=== PATIENT | female | born 1965 | race Caucasian/White ===

== ENCOUNTER 2017-04-10 13:40 | Emergency (ER) | payer OTHER ==
[~2017-04-10] VITALS: Ht 162.6 cm; Wt 79.8 kg
[~2017-04-10 13:40] MED LIST: TEMA30CA PO; TRAM50TA2 PO
[2017-04-10] MEDS ORDERED: SODIUM CHLORIDE 0.9% 1,000ML IVBOLUS ONE (14:00)
[2017-04-10 14:24] LABS: ASPARTATE AMINO TRANSFERASE 18 U/L (15-37); BLOOD UREA NITROGEN 9 mg/dL (7-18)
[2017-04-10] MEDS ORDERED: LORazepam 2 MG/ML, 1ML IVPush ONE (14:30)
[2017-04-10] MEDS ORDERED: LORazepam 2 MG/ML, 1ML ONE (14:36)
[2017-04-10] MEDS ORDERED: ACETAMINOPHEN 325 MG TABLET PO ONE (15:30)
[2017-04-10 15:32] VITALS: BP 137/56
== END 2017-04-10 15:35 | disposition home or self-care (01) ==
LOC: ED 15:29
DX: T50.905A Adverse effect of unspecified drugs, medicaments and biological substances, initial encounter (principal); R53.1 Weakness; Y92.9 Unspecified place or not applicable
CPT/HCPCS: 36415; 80053; 82550; 85025; 85610; 93005; 96361; 96374; J2060; J7030

== ENCOUNTER → 2017-06-04 | Outpatient (CLI) | payer OTHER ==
[~2017-06-04] MED LIST changes: +ENAL5TAB PO; +FLUO10TA PO; +OXYB5TAB7 PO; +TRAZ50TA18 PO
== END | disposition home or self-care (01) ==
LOC: STAR 15:50
PROVIDERS: ATTEND Obstetrics & Gynecology Female Pelvic Medicine and Reconstructive Surgery
DX: Z02.9 Encounter for administrative examinations, unspecified (principal)

== ENCOUNTER → 2017-06-06 | Outpatient (CLI) | payer OTHER | END | disposition home or self-care (01) | LOC: CFH 14:17 | PROVIDERS: ATTEND Student in an Organized Health Care Education/Training Program | DX: Z12.31 Encounter for screening mammogram for malignant neoplasm of breast (principal) | CPT/HCPCS: 77063; G0202 ==

== ENCOUNTER 2017-06-09 10:52 | Day surgery (SDC) | payer OTHER ==
[~2017-06-09] VITALS: Ht 163.8 cm; Wt 79.0 kg
[~2017-06-09 10:52] MED LIST changes: +BUPIVACAINE/PF-EPI 0.25% 1:200K ONE; +NEOMY/POLYMYXIN B GU IRR. 1 ML IRRIG ONE
[2017-06-09] MEDS ORDERED: LACTATED RINGERS 1,000 ML IV SCH (11:27)
[2017-06-09] MEDS ORDERED: MIDAZOLAM 1 MG/ML, 2ML ONE (11:28)
[2017-06-09] MEDS ORDERED: FENTANYL PF 100 MCG/2ML ONE ×3 (11:28→14:02)
[2017-06-09 11:40] VITALS: BP 112/62
[2017-06-09] MEDS ORDERED: PROPOFOL 10 MG/ML, 20ML ONE (12:47)
[2017-06-09] MEDS ORDERED: ONDANSETRON 2MG/ML, 2ML ONE (12:47)
[2017-06-09] MEDS ORDERED: NEOSTIGMINE 1 MG/ML, 10ML ONE (12:47)
[2017-06-09] MEDS ORDERED: GLYCOPYRROLATE 0.2MG/1ML, 5ML ONE (12:47)
[2017-06-09] MEDS ORDERED: CEFAZOLIN 1,000 MG ONE (12:47)
[2017-06-09] MEDS ORDERED: DEXAMETHASONE 4 MG/ML, 1ML ONE (12:47)
[2017-06-09] MEDS ORDERED: ROCURONIUM 10 MG/ML ONE (12:47)
[2017-06-09] MEDS ORDERED: ONDANSETRON 2MG/ML, 2ML IVPush PRN (13:00)
[2017-06-09] MEDS ORDERED: LABETALOL 5MG/ML, 20ML IV PRN (13:00)
[2017-06-09] MEDS ORDERED: MEPERIDINE/PF 25MG/0.5ML IVPush PRN (13:00)
[2017-06-09] MEDS ORDERED: PROMETHAZINE 25 MG/ML, 1ML IV PRN (13:00)
[2017-06-09] MEDS ORDERED: HYDROcodone/APAP 7.5-325MG/15ML UDC PO PRN (13:00)
[2017-06-09] MEDS ORDERED: hydrALAzine 20 MG/ML, 1ML IV PRN (13:00)
[2017-06-09] MEDS ORDERED: DIPHENHYDRAMINE 50 MG/ML, 1ML IVPush ONE (14:00)
[2017-06-09] MEDS ORDERED: HYDROcodone/APAP 7.5-325MG/15ML UDC ONE (14:02)
[2017-06-09] MEDS ORDERED: DIPHENHYDRAMINE 50 MG/ML, 1ML ONE (14:02)
[2017-06-09] MEDS: FENTANYL PF 100 MCG/2ML IV PRN ×2 (14:05→14:19)
[2017-06-09] MEDS ORDERED: HYDROmorphone 1 MG/ML, 1ML ONE (14:22)
[2017-06-09] MEDS: HYDROmorphone 1 MG/ML, 1ML IV PRN ×2 (14:25→14:40)
[2017-06-09] MEDS ORDERED: KETOROLAC 30 MG/1 ML ONE (15:48)
[2017-06-09] MEDS ORDERED: KETOROLAC 30 MG/1 ML IVPush PRN (16:00)
== END 2017-06-09 17:30 ==
LOC: OUT 10:52
PROVIDERS: ATTEND Obstetrics & Gynecology Female Pelvic Medicine and Reconstructive Surgery
DX: N39.3 Stress incontinence (female) (male) (principal); I10 Essential (primary) hypertension; F17.210 Nicotine dependence, cigarettes, uncomplicated; Z72.89 Other problems related to lifestyle
CPT/HCPCS: 57265; 57282; 57288; C1781; J0690; J1100; J1170; J1200; J1885; J2250; J2405; J2704; J2710; J3010; J7120; J3490

== ENCOUNTER 2017-09-24 13:25 | Emergency (ER) | payer OTHER ==
[~2017-09-24] VITALS: Ht 162.6 cm; Wt 77.2 kg
[~2017-09-24 13:25] MED LIST changes: -BUPIVACAINE/PF-EPI 0.25% 1:200K ONE; -NEOMY/POLYMYXIN B GU IRR. 1 ML IRRIG ONE; +NITR100C6 PO
[2017-09-24 13:33] VITALS: BP 153/83
[2017-09-24] MEDS ORDERED: ONDANSETRON 2MG/ML, 2ML IVPush ONE (14:00)
[2017-09-24] MEDS ORDERED: SODIUM CHLORIDE 0.9% 1,000ML IVBOLUS ONE (14:00)
[2017-09-24] MEDS ORDERED: CEFTRIAXONE PMX 1GM/50ML 50 ML IVPB ONE (14:00)
[2017-09-24] MEDS ORDERED: SODIUM CHLORIDE FLUSH 10ML SYR IVF ONE (14:00)
[2017-09-24 14:26] LABS: BASOPHILS # (AUTO) 0.08 x10^3/uL (0-0.1); BASOPHILS % (AUTO) 1 % (0-1); EOSINOPHILS # (AUTO) 0.15 x10^3/uL (0-0.4); EOSINOPHILS % (AUTO) 2 % (1-7); LYMPHOCYTES % (AUTO) 26 % (22-44); MD NO; MEAN CORPUSCULAR HGB CONC 34.2 g/dL (32.4-35.8); MEAN CORPUSCULAR VOLUME 93.5 fL (80-100); MEAN PLATELET VOLUME 7.2 fL (7.4-10.4); MONOCYTES # (AUTO) 0.51 x10^3/uL (0.2-0.8); MONOCYTES % (AUTO) 6 % (2-9); NEUTROPHILS # (AUTO) 6.15 x10^3/uL (1.8-6.8); NEUTROPHILS % (AUTO) 66 % (42-75); PLATELET COUNT 320 x10^3/uL (130-400); RED BLOOD COUNT 4.66 x10^6/uL (3.82-5.3)
[2017-09-24] MEDS ORDERED: ONDANSETRON 2MG/ML, 2ML ONE (14:30)
[2017-09-24] MEDS ORDERED: HYDROmorphone 2 MG/ML, 1ML ONE ×2 (14:30→15:19)
[2017-09-24] MEDS ORDERED: CEFTRIAXONE PMX 1GM/50ML 50 ML ONE (14:30)
[2017-09-24 14:32] LABS: ALBUMIN 3.9 g/dL (3.4-5.0); ANION GAP 9 mmol/L (5-15); CALCIUM 8.8 mg/dL (8.5-10.1); CHLORIDE 107 mmol/L (98-107); CREATININE 0.75 mg/dL (0.55-1.02)
[2017-09-24] MEDS: HYDROmorphone 1 MG/ML, 1ML IVPush PRN ×2 (14:37→15:22)
[2017-09-24 14:41] LABS: MICROSCOPIC INDICATED
[2017-09-24] MEDS ORDERED: LEVO500T8 PO (14:41)
[2017-09-24 14:47] LABS: CULTURE INDICATED? YES
== END 2017-09-24 16:37 | disposition home or self-care (01) ==
LOC: ED 14:50
DX: N30.00 Acute cystitis without hematuria (principal); R10.30 Lower abdominal pain, unspecified; I10 Essential (primary) hypertension; Z90.710 Acquired absence of both cervix and uterus
CPT/HCPCS: 36415; 80048; 81001; 82040; 83605; 85025; 87040; 87086; 96365; 96375; 96376; 99284; J0696; J1170; J2405; J7030

== ENCOUNTER → 2018-09-04 | Outpatient (CLI) | payer OTHER ==
[~2018-09-04] MED LIST changes: +AMOX1TAB12 PO; +DOXY100T PO; +LEVO500T8 PO; -TRAZ50TA18 PO; +TRAZ50TA66 PO
== END | disposition home or self-care (01) ==
LOC: CFH 15:28
PROVIDERS: ATTEND Family Medicine
DX: Z12.31 Encounter for screening mammogram for malignant neoplasm of breast (principal)
CPT/HCPCS: 77067

== ENCOUNTER 2018-10-22 10:11 | Inpatient (IN) | payer OTHER ==
[~2018-10-22] VITALS: Ht 162.6 cm; Wt 80.3 kg
[2018-10-22] MEDS ORDERED: ACETAMINOPHEN 500 MG TABLET ONE (10:23)
[2018-10-22] MEDS ORDERED: ACETAMINOPHEN 500 MG TABLET PO ONE (10:30)
[2018-10-22 11:19] LABS: BASOPHILS # (AUTO) 0.01 x10^3/uL (0-0.1); BASOPHILS % (AUTO) 0 % (0-1); EOSINOPHILS # (AUTO) 0.02 x10^3/uL (0-0.4); EOSINOPHILS % (AUTO) 0 % (1-7); LYMPHOCYTES # (AUTO) 0.97 x10^3/uL (1-3.4); LYMPHOCYTES % (AUTO) 7 % (22-44); MD NO; MEAN CORPUSCULAR HEMOGLOBIN 33.6 pg (27.0-34.8); MEAN CORPUSCULAR HGB CONC 35.2 g/dL (32.4-35.8); MEAN CORPUSCULAR VOLUME 95.3 fL (80-100); MEAN PLATELET VOLUME 7.5 fL (7.4-10.4); MONOCYTES # (AUTO) 1.41 x10^3/uL (0.2-0.8); MONOCYTES % (AUTO) 10 % (2-9); NEUTROPHILS # (AUTO) 12.19 x10^3/uL (1.8-6.8); NEUTROPHILS % (AUTO) 84 % (42-75); PLATELET COUNT 289 x10^3/uL (130-400); RED BLOOD COUNT 4.14 x10^6/uL (3.82-5.3); RED CELL DISTRIBUTION WIDTH 12.9 % (9.6-15.2)
[2018-10-22 11:22] LABS: CHLORIDE 98 mmol/L (98-107)
[2018-10-22 11:23] LABS: ALANINE AMINOTRANSFERASE 36 U/L (12-78); ALBUMIN 3.1 g/dL (3.4-5.0); ANION GAP 9 mmol/L (5-15); CALCIUM 9.5 mg/dL (8.5-10.1); CREATININE 1.06 mg/dL (0.55-1.02)
[2018-10-22 11:25] LABS: ALKALINE PHOSPHATASE 117 U/L (45-117); BILIRUBIN,TOTAL 1.7 mg/dL (0.2-1.0)
[2018-10-22 12:38] LABS: MICROSCOPIC INDICATED
[2018-10-22 12:45] LABS: CULTURE INDICATED? YES
--- NOTE | 2018-10-22 13:17 | NUR ---
pt to room from lobby
--- NOTE | 2018-10-22 13:20 | NUR ---
late entry for 13:20. first contact with pt. pt c/o cough, bilateral flank pain, bilateral lower back pain, right ear pain and foul smelling urine since Friday. pt denies n/v/d at this time. pt aox4. resps even and unlabored. no mass/trauma noted on abd area. bp/spo2 monitors in place. call light within reach.
[2018-10-22] MEDS ORDERED: SODIUM CHLORIDE FLUSH 10ML SYR IVF ONE (13:30)
[2018-10-22] MEDS ORDERED: KETOROLAC 30 MG/1 ML IVPush ONE (13:30)
[2018-10-22] MEDS ORDERED: CEFTRIAXONE 1,000 MG in SODIUM CHLORIDE 0.9% 50 ML IVPB ONE (13:30)
[2018-10-22] MEDS ORDERED: SODIUM CHLORIDE 0.9% 1,000ML IVBOLUS ONE (13:30)
[2018-10-22] MEDS ORDERED: CEFTRIAXONE PMX 1GM/50ML 50 ML ONE (13:36)
--- NOTE | 2018-10-22 13:50 | NUR ---
sbar report given to marianne tavares. all questions answered.
[2018-10-22] MEDS ORDERED: KETOROLAC 30 MG/1 ML ONE (13:52)
--- NOTE | 2018-10-22 13:56 | NUR ---
per EDMD rapid flu test not indicated at this time.
--- NOTE | 2018-10-22 13:56 | NUR ---
PT MEDICATED PER EMAR. PT TOLERATED WELL. PT AOX4. RESPS EVEN AND UNLABORED.
[2018-10-22 14:18] LABS: HCG UR SG 1.021 (1.003-1.030)
[2018-10-22] MEDS ORDERED: ONDANSETRON ODT 4 MG PO PRN (15:00)
[2018-10-22] MEDS ORDERED: ONDANSETRON 2MG/ML, 2ML IVPush PRN (15:00)
[2018-10-22] MEDS ORDERED: ACETAMINOPHEN 325 MG TABLET PO PRN (15:00)
[2018-10-22] MEDS ORDERED: POLYETHYLENE GLYCOL 17 GM PACKET PO PRN (15:00)
[2018-10-22] MEDS ORDERED: GUAIFENESIN/DM 200-20MG, 10ML UDC PO PRN (15:00)
[2018-10-22] MEDS ORDERED: BISACODYL 10 MG SUPP PR PRN (15:00)
[2018-10-22 15:01] VITALS: BP 102/65
[2018-10-22 15:30] VITALS: BP 99/56
[2018-10-22] MEDS: IBUPROFEN 600 MG TABLET PO PRN (15:57)
[2018-10-22] MEDS: ENOXAPARIN 40 MG/0.4 ML SQ SCH (15:57)
[2018-10-22] MEDS: SODIUM CHLORIDE 0.9% 1,000 ML IV SCH (15:57)
[2018-10-22] MEDS: CEFTRIAXONE PMX 2GM/50ML 50 ML IV SCH (16:35)
[2018-10-22] MEDS: KETOROLAC 30 MG/1 ML IV PRN (17:15)
[2018-10-22 20:01] VITALS: BP 111/69
[2018-10-22] MEDS: TRAZODONE 50MG TABLET PO SCH (20:25)
[2018-10-23 00:42] VITALS: BP 98/65
[2018-10-23] MEDS: KETOROLAC 30 MG/1 ML IV PRN ×3 (05:03→20:47)
[2018-10-23] MEDS: SODIUM CHLORIDE 0.9% 1,000 ML IV SCH ×3 (05:04→23:57)
[2018-10-23 05:13] LABS: BASOPHILS # (AUTO) 0.04 x10^3/uL (0-0.1); BASOPHILS % (AUTO) 0 % (0-1); EOSINOPHILS # (AUTO) 0.08 x10^3/uL (0-0.4); EOSINOPHILS % (AUTO) 1 % (1-7); LYMPHOCYTES # (AUTO) 1.22 x10^3/uL (1-3.4); LYMPHOCYTES % (AUTO) 10 % (22-44); MD NO; MEAN CORPUSCULAR HEMOGLOBIN 32.8 pg (27.0-34.8); MEAN CORPUSCULAR HGB CONC 34.2 g/dL (32.4-35.8); MEAN CORPUSCULAR VOLUME 95.7 fL (80-100); MEAN PLATELET VOLUME 7.2 fL (7.4-10.4); MONOCYTES # (AUTO) 1.22 x10^3/uL (0.2-0.8); MONOCYTES % (AUTO) 10 % (2-9); NEUTROPHILS # (AUTO) 9.66 x10^3/uL (1.8-6.8); NEUTROPHILS % (AUTO) 79 % (42-75); PLATELET COUNT 275 x10^3/uL (130-400); RED BLOOD COUNT 3.76 x10^6/uL (3.82-5.3); RED CELL DISTRIBUTION WIDTH 13.4 % (9.6-15.2)
[2018-10-23 05:21] LABS: ANION GAP 5 mmol/L (5-15); CALCIUM 8.7 mg/dL (8.5-10.1); CHLORIDE 108 mmol/L (98-107); CREATININE 0.87 mg/dL (0.55-1.02)
[2018-10-23 08:45] VITALS: BP 122/76
[2018-10-23] MEDS: ENALAPRIL 5MG TABLET PO SCH ×2 (08:45→08:46)
[2018-10-23] MEDS: FLUOXETINE 10 MG CAP PO SCH (08:45)
[2018-10-23] MEDS: DOCUSATE 100 MG CAPSULE PO PRN ×2 (08:53→20:47)
[2018-10-23] MEDS: IBUPROFEN 600 MG TABLET PO PRN ×2 (11:17→11:19)
[2018-10-23 12:35] VITALS: BP 105/66
[2018-10-23] MEDS: CEFTRIAXONE PMX 2GM/50ML 50 ML IV SCH (15:15)
[2018-10-23] MEDS: ENOXAPARIN 40 MG/0.4 ML SQ SCH (15:16)
[2018-10-23 19:34] VITALS: BP 119/76
[2018-10-23] MEDS: TRAZODONE 50MG TABLET PO SCH (20:47)
[2018-10-24 00:36] VITALS: BP 127/80
[2018-10-24 04:29] LABS: BASOPHILS # (AUTO) 0.14 x10^3/uL (0-0.1); BASOPHILS % (AUTO) 1 % (0-1); EOSINOPHILS # (AUTO) 0.12 x10^3/uL (0-0.4); EOSINOPHILS % (AUTO) 1 % (1-7); LYMPHOCYTES # (AUTO) 2.16 x10^3/uL (1-3.4); LYMPHOCYTES % (AUTO) 19 % (22-44); MD NO; MEAN CORPUSCULAR HEMOGLOBIN 33.4 pg (27.0-34.8); MEAN CORPUSCULAR HGB CONC 35.2 g/dL (32.4-35.8); MEAN CORPUSCULAR VOLUME 94.9 fL (80-100); MEAN PLATELET VOLUME 7.3 fL (7.4-10.4); MONOCYTES # (AUTO) 1.07 x10^3/uL (0.2-0.8); MONOCYTES % (AUTO) 9 % (2-9); NEUTROPHILS % (AUTO) 70 % (42-75); PLATELET COUNT 335 x10^3/uL (130-400); RED BLOOD COUNT 3.53 x10^6/uL (3.82-5.3); RED CELL DISTRIBUTION WIDTH 13.4 % (9.6-15.2)
[2018-10-24 04:32] LABS: ANION GAP 8 mmol/L (5-15); CALCIUM 8.7 mg/dL (8.5-10.1); CHLORIDE 107 mmol/L (98-107); CREATININE 0.76 mg/dL (0.55-1.02)
[2018-10-24] MEDS ORDERED: POTASSIUM CHLORIDE 10% 40 MEQ/30 ML UDC PO ONE (08:00)
[2018-10-24] MEDS: ENALAPRIL 5MG TABLET PO SCH (08:28)
[2018-10-24] MEDS: FLUOXETINE 10 MG CAP PO SCH (08:29)
[2018-10-24] MEDS: SODIUM CHLORIDE 0.9% 1,000 ML IV SCH (08:30)
== END 2018-10-24 10:53 | disposition left against medical advice (07) | DRG 872 ==
LOC: ED 13:25 → 3NW 13:30 → ED 13:56
PROVIDERS: ADMIT Hospitalist; ATTEND Hospitalist
DX: A41.9 Sepsis, unspecified organism (principal); E44.1 Mild protein-calorie malnutrition; E87.1 Hypo-osmolality and hyponatremia; N12 Tubulo-interstitial nephritis, not specified as acute or chronic; F17.210 Nicotine dependence, cigarettes, uncomplicated; I10 Essential (primary) hypertension; F32.9 Major depressive disorder, single episode, unspecified; G47.00 Insomnia, unspecified; G89.29 Other chronic pain; Z90.710 Acquired absence of both cervix and uterus; Z68.30 Body mass index [BMI] 30.0-30.9, adult
CPT/HCPCS: 36415; 71046; 80048; 80053; 81001; 81025; 83605; 85025; 87040; 87077; 87086; 87186; 96374; 99285; G0378; J0696; J1650; J1885; J7030

== ENCOUNTER 2019-04-16 01:39 | Emergency (ER) | payer OTHER ==
[~2019-04-16] VITALS: Ht 172.7 cm; Wt 79.0 kg
--- NOTE | 2019-04-16 01:53 | NUR ---
Distended bladder noted by erp us and pt bladder distention/pain noted. Md verbal order for urinary catheter. Jeri rn at bedside to place at this time.
[2019-04-16] MEDS ORDERED: PHENAZOPYRIDINE 200 MG TABLET ONE (02:09)
--- NOTE | 2019-04-16 02:16 | NUR ---
UPON ARRIVAL TO THE ED BY GINO, THE PT WAS VERBALLY ABUSIVE. YELLING "JUST GET ME A FUCKING CATHETER!!" OVER AND OVER. THE PT WOULD NOT ALLOW THE STAFF TO COMPLETE AN ASSESSMENT. THE PT REFUSED A BLADDER SCAN. THE PT IS YELLING AT THE RN TO "JUST FUCKING DO SOMETHING YOU SMART ASS!!". THE F/C WAS PLACED AND 1100 CC WAS DRAINED FROM THE BLADDER. Addendum: 04/16/19 at 0222 by BARI NOTED THE UNDERWEAR THE PT S.O. REMOVED FOR THE PT WERE SOILED.
--- NOTE | 2019-04-16 02:20 | NUR ---
WARM BLANKETS APPLED TO THE PT.
--- NOTE | 2019-04-16 02:23 | NUR ---
THE PT WAS GIVEN PYRIDIUM FOR BLADDER PAIN "OH FUCKING GREAT, I WILL JUST PEE ORANGE NOW, I COULD HAVE DONE THIS AT HOME!!".
[2019-04-16 02:24] LABS: MICROSCOPIC AUTO
[2019-04-16 02:25] LABS: CULTURE INDICATED? YES
[2019-04-16] MEDS ORDERED: PHENAZOPYRIDINE 200 MG TABLET PO ONE (02:30)
[2019-04-16 02:31] LABS: ANION GAP 8 mmol/L (5-15); CALCIUM 8.9 mg/dL (8.5-10.1); CHLORIDE 111 mmol/L (98-107); CREATININE 0.79 mg/dL (0.55-1.02)
[2019-04-16] MEDS ORDERED: KETOROLAC 30 MG/1 ML ONE (02:38)
--- NOTE | 2019-04-16 02:43 | NUR ---
MEDICATED FOR PAIN AND PILLOW GIVEN TO THE PT.
--- NOTE | 2019-04-16 02:51 | NUR ---
MORE RESTFUL AT THIS TIME.
--- NOTE | 2019-04-16 02:53 | NUR ---
"YOU CAN TAKE YOUR TORADOL AND ...., I WANT YOUR LICENSE NUMBER AND THE DOCTORS LICENSE NUMBER!!".
[2019-04-16] MEDS ORDERED: CEFDINIR 300 MG CAPSULE PO ONE (03:00)
[2019-04-16] MEDS ORDERED: DIPHENHYDRAMINE 25 MG CAPSULE PO ONE (03:00)
[2019-04-16] MEDS ORDERED: KETOROLAC 30 MG/1 ML IM ONE (03:00)
[2019-04-16] MEDS ORDERED: OXYcodone/APAP 5/325MG TABLET PO ONE (03:00)
[2019-04-16] MEDS ORDERED: CEFDINIR 300 MG CAPSULE ONE (03:10)
[2019-04-16] MEDS ORDERED: OXYcodone/APAP 5/325MG TABLET ONE (03:10)
[2019-04-16] MEDS ORDERED: DIPHENHYDRAMINE 25 MG CAPSULE ONE (03:10)
--- NOTE | 2019-04-16 03:17 | NUR ---
THE PT WAS TAKEN ID OF MEDICATIONS. THE PT BEGAN BY SAYING THAT "I CAN NOT BELIEVE THEY ARE SENDING ME HOME WHEN I AM DRAINGING THAT MUCH YOU ARE SUCH A STUPID BITCH AND I HAVE NEVER SEEN SOMEONE SO COLD AND LACKING COMPASSION, AND IF YOU DON'T WIPE THAT SMIRK OFF YOUR FACE I WILL, I WANT TO SEE THE ELECTRICAL MAINTENANCE MAN!!" CHARGE UPDATED. THE PT WILL NOT ALLOW THE RN TO CHANGE BAG TO A LEG BAG. Addendum: 04/16/19 at 0320 by BARI SEE MAR FOR THE MEDS GIVEN.
[2019-04-16 03:22] VITALS: BP 117/70
--- NOTE | 2019-04-16 03:41 | NUR ---
SUPERVISORS IN TO SPEAK W/ THE PT.
--- NOTE | 2019-04-16 03:41 | NUR ---
THE PT WAS D/C TO THE CARE OF HER S.O.
== END 2019-04-16 03:45 | disposition home or self-care (01) ==
LOC: ED 01:45
DX: N30.00 Acute cystitis without hematuria (principal); R33.9 Retention of urine, unspecified; F10.129 Alcohol abuse with intoxication, unspecified; I10 Essential (primary) hypertension; F41.1 Generalized anxiety disorder; F17.200 Nicotine dependence, unspecified, uncomplicated; Z90.710 Acquired absence of both cervix and uterus; Y90.9 Presence of alcohol in blood, level not specified
CPT/HCPCS: 36415; 51702; 80048; 80307; 81001; 87077; 87086; 87186; 96372; 99284; J1885; Q0163

== ENCOUNTER 2019-04-21 11:18 | Emergency (ER) | payer OTHER ==
[~2019-04-21] VITALS: Ht 162.6 cm; Wt 77.6 kg
[2019-04-21 15:01] VITALS: BP 145/73
== END 2019-04-21 15:23 | disposition home or self-care (01) ==
LOC: ED 13:03
DX: R33.9 Retention of urine, unspecified (principal); I10 Essential (primary) hypertension; Z90.710 Acquired absence of both cervix and uterus
CPT/HCPCS: 81001; 96372; 99284; J1885

== ENCOUNTER 2019-08-12 03:32 | Emergency (ER) | payer OTHER ==
[~2019-08-12] VITALS: Ht 172.7 cm; Wt 74.0 kg
[~2019-08-12 03:32] MED LIST changes: +OXYB5TAB10 PO; -OXYB5TAB7 PO
--- NOTE | 2019-08-12 03:50 | NUR ---
PT PLACED IN HOSPITAL GOWN. PT BLADDER SCANNED FOR >999ML UPON ARRIVAL. ERP AWARE, IS GOING TO SEE PT.
--- NOTE | 2019-08-12 04:33 | NUR ---
CORDERO PLACED PER ERP ORDER. PT RESTING CALMLY IN BED AT THIS TIME, DOZING OFF AND ON WITH EYES CLOSED. PT DESATING TO 79% ON RA. PT PLACED ON 3L O2 PER N/C. WILL CONTINUE TO MONITOR.
[2019-08-12 04:47] LABS: MICROSCOPIC NOT IND
[2019-08-12 04:48] LABS: CULTURE INDICATED? NO
[2019-08-12 04:58] LABS: AMPHETAMINE SCREEN, URINE Negative (Negative); BARBITURATE SCREEN, URINE Negative (Negative); BENZODIAZEPINE SCREEN, URINE Negative (Negative); CANNABINOID SCREEN, URINE Negative (Negative); COCAINE SCREEN, URINE Negative (Negative); METHADONE SCREEN, URINE Negative (Negative); OPIATE SCREEN, URINE Negative (Negative)
[2019-08-12] MEDS ORDERED: IBUPROFEN 600 MG TABLET ONE (05:43)
[2019-08-12 05:55] VITALS: BP 103/56
[2019-08-12] MEDS ORDERED: IBUPROFEN 600 MG TABLET PO ONE (06:00)
== END 2019-08-12 05:58 | disposition home or self-care (01) ==
LOC: ED 05:45
DX: R33.9 Retention of urine, unspecified (principal); I10 Essential (primary) hypertension; F17.200 Nicotine dependence, unspecified, uncomplicated; Z90.710 Acquired absence of both cervix and uterus
CPT/HCPCS: 51702; 80307; 81003; 99284

== ENCOUNTER 2019-08-25 20:03 | Emergency (ER) | payer OTHER ==
[~2019-08-25] VITALS: Ht 172.7 cm; Wt 73.8 kg
--- NOTE | 2019-08-25 20:18 | NUR ---
AZEEM WAS BIB EMS AFTER [employer] ARRIVED AT HER HOUSE AFTER SA. PT CALLED HER SAYING THAT SHE JUST WANTED TO GO TO SLEEP FOREVER AND WANTED TO BE LEFT ALONE "PT WISH SHE COULD AND JUST BE OVER WITH IT" PT TOOK 9 50MG TRAZADONE AND ALSO INGESTED ETOH TONIGHT. PT HAS NO S/SX OF TRUAMA. PT VERY AGGRESSIVE SAYING SHE DOES NOT WANT TO BE HERE AND DOES NOT WANT HER POSSESSIONS TAKEN. PT WAS PLACED ON A LEGAL MENTAL HEALTH CRISIS FORM. PT REPROTED TO SHE WOULD SHOOT ANYONE THAT ENTERED THE HOUSE AND PT HAD ACCESS TO GUNS. NOT CONFRENTATION WAS DONE BETWEEN HER AND THE OFFICER. PT HAS SHOWN MANIPULATIVE BEHAVIORS BY BEING RUDE OR DISSRESPECTFUL TO ONE STAFF AND COMPLEMENTING ANOTHER. OR VERBALZIIGN THREATS AND SAY SHE IS JUST STRESSED. PT WAS PLACED IN A SAFE ROOM AND UA COLLECTED. 1 BAG OF BELONGINGS TAKEN AWAY AT THIS TIME THAT HAVE A GREEN PURSE IN THEM. PT REFUSING TO GIVE UP HER CELL PHONE AT THIS TIME. SUP RN INFORMED. AWAITING MD CERVANTES. AWAITING FURTHER ORDERS.
[2019-08-25 20:28] LABS: CULTURE INDICATED? YES; MICROSCOPIC INDICATED
[2019-08-25 20:38] LABS: AMPHETAMINE SCREEN, URINE Negative (Negative); BARBITURATE SCREEN, URINE Negative (Negative); BENZODIAZEPINE SCREEN, URINE Negative (Negative); CANNABINOID SCREEN, URINE Negative (Negative); COCAINE SCREEN, URINE Negative (Negative); METHADONE SCREEN, URINE Negative (Negative); OPIATE SCREEN, URINE Negative (Negative)
[2019-08-25 20:53] LABS: BASOPHILS # (AUTO) 0.04 x10^3/uL (0-0.1); BASOPHILS % (AUTO) 1 % (0-1); EOSINOPHILS # (AUTO) 0.18 x10^3/uL (0-0.4); EOSINOPHILS % (AUTO) 3 % (1-7); LYMPHOCYTES # (AUTO) 3.32 x10^3/uL (1-3.4); LYMPHOCYTES % (AUTO) 47 % (22-44); MD NO; MEAN CORPUSCULAR HEMOGLOBIN 33.9 pg (27.0-34.8); MEAN CORPUSCULAR HGB CONC 34.2 g/dL (32.4-35.8); MEAN CORPUSCULAR VOLUME 98.9 fL (80-100); MONOCYTES % (AUTO) 6 % (2-9); NEUTROPHILS # (AUTO) 3.21 x10^3/uL (1.8-6.8); NEUTROPHILS % (AUTO) 45 % (42-75); PLATELET COUNT 350 x10^3/uL (130-400); RED BLOOD COUNT 4.58 x10^6/uL (3.82-5.3)
[2019-08-25 21:06] LABS: ALBUMIN 3.9 g/dL (3.4-5.0); ANION GAP 7 mmol/L (5-15); CHLORIDE 113 mmol/L (98-107); SALICYLATE LEVEL 4.9 mg/dL (2.8-20.0)
[2019-08-25 21:09] LABS: ALANINE AMINOTRANSFERASE 20 U/L (12-78); ALKALINE PHOSPHATASE 56 U/L (45-117); BILIRUBIN,TOTAL 0.3 mg/dL (0.2-1.0); TOTAL PROTEIN 7.6 g/dL (6.4-8.2)
--- NOTE | 2019-08-25 21:10 | NUR ---
FEMALE RN MAY AND PREET WANG TO INSERT CORDERO CATH IN PT. PT HAVING URINARY RETENTION 711MLS ON BLADDER SCAN.
--- NOTE | 2019-08-25 21:31 | NUR ---
Cath inserted x1 attempt using sterile technique. Pt reports immediate improvement in pain.
[2019-08-25] MEDS ORDERED: NICOTINE 14MG/24 HR PATCH.TD24 TD ONE (22:00)
[2019-08-25] MEDS ORDERED: NICOTINE 14MG/24 HR PATCH.TD24 ONE (22:03)
--- NOTE | 2019-08-25 22:15 | NUR ---
Pt given SI/HI safe meal plate. Pt given warm blankets. Sitter turning on TV for pt. Pt's brother remains at bedside.
--- NOTE | 2019-08-25 23:02 | NUR ---
PT GIVEN MEAL TRAY AND GIVEN NICOTIENE PATCH FOR COMFORT.
--- NOTE | 2019-08-25 23:53 | NUR ---
RECEIVED REPORT FROM MEAGAN RN'S TO ASSUME CARE OF PT. AT THIS TIME. LETI MOSLEY FOR SUPPORT.
--- NOTE | 2019-08-25 23:54 | NUR ---
Report to KATHLEEN Mcnulty
--- NOTE | 2019-08-26 00:46 | NUR ---
BREATHALYZER WAS PERFORMED AND PT. NOW ABLE TO HAVE TELEPSYCH CONSULT INITIATED; BOT PLACED IN ROOM AND PROCESS DISCUSSED WITH PT. PT. AGITATED AND STATING "I AM NOT TALKING TO A DR. ON A SCREEN!" DISCUSSED PROCESS AGAIN WITH PT. AND PROVIED PT. WITH WATER PER REQUEST. ROOM REMAINS SECURED AND SITTER IS IN [place].
--- NOTE | 2019-08-26 01:10 | NUR ---
REPORT TO MARCIA HALL.
--- NOTE | 2019-08-26 01:28 | NUR ---
TELEPSYCH EVAL IN PROGRESS AT THIS TIME.
--- NOTE | 2019-08-26 01:42 | NUR ---
TELEPSYCH MD CALLED BACK; SHE REPORTS SHE NEEDS TO SPEAK WITH PT. SPOUSE PRIOR TO MAKING DECISION ON LEGAL HOLD. SPOUSE PHONE NUMBER CONFIRMED WITH PT. AND TELEPSYCH MD TO CALL NOW. PT. MORE CALM AND COOPERATIVE WITH STAFF. MORE WATER PROVIDED PER REQUEST.
--- NOTE | 2019-08-26 02:40 | NUR ---
PT. AWARE OF PLAN FOR D/C. PT. BELONGINGS GIVEN BACK TO PT. PT. STATES "I NEED THIS CATHETER TAKEN OUT, I AM NOT GOING HOME WITH IT IN, I HAVE AN APPOINTMENT AT [facility] TOMORROW ALREADY SCHEDULED ANYWAYS. I WILL GET A NEW ONE THEN IF I NEED TO." PT. EDUCATED ON RISKS OF RETENTION IF TAKEN OUT; VERBALIZED UNDERSTANDING. DISCUSSED WITH DR. LUTHER WELL. PT. REPORTS SHE KNOWS "WHEN IT'S FULL AND NEEDS DRAINED" AND WOULD COME BACK IF NECESSARY.
[2019-08-26 02:43] VITALS: BP 118/76
== END 2019-08-26 02:49 | disposition home or self-care (01) ==
LOC: ED 21:45
DX: R33.9 Retention of urine, unspecified (principal); F43.21 Adjustment disorder with depressed mood; F10.129 Alcohol abuse with intoxication, unspecified; I95.9 Hypotension, unspecified
CPT/HCPCS: 36415; 51702; 80053; 80307; 81001; 85025; 87086; 99284

== ENCOUNTER 2019-10-20 10:30 | Emergency (ER) | payer OTHER ==
[~2019-10-20] VITALS: Ht 162.6 cm; Wt 78.2 kg
--- NOTE | 2019-10-20 11:21 | NUR ---
TASK RN: CONTACT WITH PT. 53 YR OLD FEMALE HERE WITH C/O "POSSIBLE UTI/KIDNEY INFECTION, BLADDER INFECTION" HAVE BURNING WITH URINATION, FREQUENCY, ABD/BACK/FLANK PAIN, SMELL OF URINE. PT SITTING UP ON GURNEY. NO ACUTE DISTRESS NOTED. LODGING HOUSE KEEPER AT BEDSIDE FOR BLOOD DRAW.
[2019-10-20] MEDS ORDERED: KETOROLAC 30 MG/1 ML IM ONE (11:30)
[2019-10-20 11:40] LABS: BASOPHILS # (AUTO) 0.04 x10^3/uL (0-0.1); BASOPHILS % (AUTO) 1 % (0-1); EOSINOPHILS # (AUTO) 0.17 x10^3/uL (0-0.4); EOSINOPHILS % (AUTO) 2 % (1-7); LYMPHOCYTES # (AUTO) 2.26 x10^3/uL (1-3.4); LYMPHOCYTES % (AUTO) 29 % (22-44); MD NO; MEAN CORPUSCULAR HEMOGLOBIN 33.6 pg (27.0-34.8); MEAN CORPUSCULAR HGB CONC 34.2 g/dL (32.4-35.8); MEAN CORPUSCULAR VOLUME 98.2 fL (80-100); MEAN PLATELET VOLUME 7.1 fL (7.4-10.4); MONOCYTES # (AUTO) 0.55 x10^3/uL (0.2-0.8); MONOCYTES % (AUTO) 7 % (2-9); NEUTROPHILS # (AUTO) 4.74 x10^3/uL (1.8-6.8); NEUTROPHILS % (AUTO) 61 % (42-75); PLATELET COUNT 336 x10^3/uL (130-400); RED BLOOD COUNT 4.22 x10^6/uL (3.82-5.3); RED CELL DISTRIBUTION WIDTH 13.6 % (9.6-15.2)
[2019-10-20 11:51] LABS: MICROSCOPIC INDICATED
[2019-10-20 11:56] LABS: CHLORIDE 107 mmol/L (98-107)
[2019-10-20 12:01] LABS: ALBUMIN 3.6 g/dL (3.4-5.0); ANION GAP 8 mmol/L (5-15); CALCIUM 8.8 mg/dL (8.5-10.1); CREATININE 0.87 mg/dL (0.55-1.02)
[2019-10-20 12:20] LABS: CULTURE INDICATED? YES
[2019-10-20 12:54] VITALS: BP 127/66
--- NOTE | 2019-10-20 12:56 | NUR ---
REPORT RECEIVED FROM TASK RN ZHOU. PT DECLINES TORADOL. PT GIVEN DC INSTRUCTIONS AND SCRIPT, NO COMPLAINT AT THIS TIME. POT EDUCATED REGARDING RX FOR ZOFRAN AND OMNICEF. PT A&O, RESPS EVEN AND UNLABORED. PT AMB TO DC DESK WITH STEADY GAIT. NADN AT DC.
== END 2019-10-20 12:57 | disposition home or self-care (01) ==
LOC: ED 12:05
DX: N30.01 Acute cystitis with hematuria (principal); I10 Essential (primary) hypertension; I95.9 Hypotension, unspecified
CPT/HCPCS: 36415; 80048; 81001; 82040; 85025; 87086; 99283